=== PATIENT | female | born 1985 | race Caucasian/White ===

== ENCOUNTER 2018-02-12 14:13 | Emergency (ER) | payer MEDICAID, OTHER ==
[~2018-02-12] VITALS: Ht 167.6 cm; Wt 86.2 kg
[2018-02-12 14:44] LABS: Basophils # (auto) 0 uL; Basophils % (auto) 0.6 % (0.0-2.0); Eosinophils # (auto) 0.2 uL; Eosinophils % (auto) 3.1 % (0.0-7.0); Hematocrit 44.6 % (36.0-46.0); Hemoglobin 14.9 g/dL (12.2-16.2); Lymphocytes # (auto) 2.1 uL; Lymphocytes % (auto) 35.5 % (10.0-50.0); Mean Corpuscular Hgb Conc. 33.5 g/dL (32.0-36.0); Mean Corpuscular Volume 89.6 fL (80.0-100.0); Monocytes # (auto) 0.2 uL; Monocytes % (auto) 4.1 % (0.0-12.0); Neutrophils # (auto) 3.4 uL; Neutrophils % (auto) 56.7 % (37.0-80.0); Nucleated Red Blood Cells % 0.1 %; Platelet Count (auto) 285 10^3/uL (140-450); Red Blood Cells 4.98 10^6/uL (4.0-5.20); Red Cell Distribution Width 14.9 % (11.8-14.3)
[2018-02-12 15:01] LABS: Alanine Aminotransferase 29 U/L (13-56); Albumin 4.1 g/dL (3.4-5.0); Alkaline Phosphatase 134 U/L (45-117); Anion Gap 15 (5-15); Aspartate Aminotransferase 27 U/L (15-37); BUN/Creatinine Ratio 9.5; Bilirubin, Total 1.5 mg/dL (0.2-1.0); Blood Urea Nitrogen 10 mg/dL (7-18); Carbon Dioxide 21 mmol/L (21-32); Chloride 103 mmol/L (98-107); GFR African American 79 mL/min; GFR Non-African American 65 mL/min; Glucose 109 mg/dL (74-106); Magnesium 2.3 mg/dL (1.6-2.6); Sodium 139 mmol/L (136-145); Total Protein 8.9 g/dL (6.4-8.2)
[2018-02-12 15:09] LABS: Potassium 2.9 mmol/L (3.5-5.1)
[2018-02-12] MEDS ORDERED: methylPREDNISolone SOD SUCC 125 MG/2 ML VL IV ONE (15:30)
[2018-02-12] MEDS ORDERED: ALBUTEROL SULF 2.5 MG/0.5ML(0.5%) NEB SOLN NEB ONE (15:30)
[2018-02-12] MEDS ORDERED: POTASSIUM EFFERVESENT TAB 25 MEQ PO ONE (15:30)
[2018-02-12] MEDS ORDERED: IPRATROPIUM BROM 0.5 MG/2.5ML INH SOL NEB ONE (15:30)
[2018-02-12 16:42] VITALS: BP 124/64
== END 2018-02-12 16:55 | disposition home or self-care (01) ==
LOC: ER 14:13 → EDBD 14:13 → ER 16:55
DX: J45.901 Unspecified asthma with (acute) exacerbation (principal); E87.6 Hypokalemia
CPT/HCPCS: 36415; 71045; 80053; 83735; 84484; 85025; 93005; 94640; 94761; 96374; 99285; J2930

== ENCOUNTER 2018-02-15 21:37 | Emergency (ER) | payer MEDICAID ==
[~2018-02-15] VITALS: Ht 167.6 cm; Wt 88.5 kg
[2018-02-15] MEDS ORDERED: GLUCAGON HYDROCHLORIDE (RDNA) 1 MG VIAL IM ONE (22:15)
[2018-02-15] MEDS ORDERED: diphenhdrAMINE HCL 50 MG/1 ML VL IV ONE (22:15)
[2018-02-15] MEDS ORDERED: methylPREDNISolone SOD SUCC 125 MG/2 ML VL IV ONE (22:15)
[2018-02-15] MEDS ORDERED: FAMOTIDINE (10MG/ML) 2ML VL IV ONE ×2 (22:19→22:30)
[2018-02-16 00:20] VITALS: BP 135/79
[2018-02-16] MEDS ORDERED: DEXAMETHASONE SOD PHOS 10MG/1ML VIAL INJ IM ONE (01:00)
== END 2018-02-16 01:30 | disposition home or self-care (01) ==
LOC: ER 21:44
DX: L23.3 Allergic contact dermatitis due to drugs in contact with skin (principal); T48.6X5A Adverse effect of antiasthmatics, initial encounter; J45.909 Unspecified asthma, uncomplicated; Z88.8 Allergy status to other drugs, medicaments and biological substances; Y92.89 Other specified places as the place of occurrence of the external cause
CPT/HCPCS: 70490; 96372; 96374; 96375; 99284; J1100; J1200; J1610; J2930; J3490